=== PATIENT | male | born 2000 | race Caucasian/White ===

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

== ENCOUNTER → 2022-07-04 | Outpatient (CLI) | payer BC ==
--- NOTE | 2022-07-04 17:09 | US ---
EXAMINATION TYPE: US scrotum with doppler. Grayscale and color Doppler Duplex imaging performed of jose ramon crockett scrotum. DATE OF EXAM: 07/04/2022 COMPARISON: CLINICAL HISTORY: N45.2 ORCHITIS. Patient states he felt a lump x 3 days ago. No pain. EXAM MEASUREMENTS: TESTICLES: Right Testicle: 3.9 x 3.5 x 2.5 cm Left Testicle: 4.0 x 3.3 x 2.1 cm EPIDIDYMIS HEAD: Right Epididymis: 0.8 x 1.0 x 1.0 cm Left Epididymis: 0.8 x 0.8 x 0.8 cm Doppler performed to assess for testicular vascularity; good bilateral color flow and waveforms are s een. There is no evidence of testicular torsion. Presence of hydroceles: no Presence of varicoceles: visualized at area of concern at left teste IMPRESSION: No evidence of testicular torsion or mass. There is mild left-sided varicocele.
== END | disposition home or self-care (01) ==
LOC: RADUSWWP 16:17
PROVIDERS: ATTEND Family Medicine
DX: I86.1 Scrotal varices (principal); N45.2 Orchitis
CPT/HCPCS: 76870; 93975